=== PATIENT | female | born 1955 | race Caucasian/White ===

== ENCOUNTER 2017-07-07 14:30 | Outpatient (CLI) | payer MEDICARE, OTHER ==
--- NOTE | 2017-07-07 17:10 | RAD ---
TWO VIEWS LUMBAR SPINE: 07/07/17 HISTORY: Lumbar radiculopathy. Followup postsurgical change. COMPARISON: 05/18/17. FINDINGS: Again noted are postsurgical change related to posterior fusion with unilateral left sided pedicular screws and posterior fernanda transfixing the L3-4 level with intradiscal prosthesis in place. No hardwa re complication is appreciated. There are degenerative changes seen at the L2-3 with mild narrowing of the intervertebral disc space and osteophyte seen anteriorly. Due to underpenetrated technique, t he L5 vertebral body and lumbosacral junction on lateral projection are not well visualized. Surgica l clips overlie the abdomen with radiopaque suture material overlying the pelvis. There has been no other interval change from prior study. IMPRESSION: Stable postoperative and degenerative changes of the lumbar spine. POS: KIARRA
== END 2017-07-07 14:31 | disposition home or self-care (01) ==
LOC: TBSIIMAG 14:30
PROVIDERS: ATTEND Neurological Surgery
DX: M47.26 Other spondylosis with radiculopathy, lumbar region (principal); Z98.890 Other specified postprocedural states
CPT/HCPCS: 72100

== ENCOUNTER 2017-09-16 14:47 | Outpatient (CLI) | payer MEDICARE, OTHER ==
--- NOTE | 2017-09-16 16:05 | RAD ---
LUMBAR SPINE TWO VIEWS: 09/16/17 HISTORY: Spondylolisthesis lumbar region, status post surgery several months ago. FINDINGS: Comparison is made with exam of 07/07/17. Postop changes of left sided posterior spinal fusion are again seen with pedicle screws and interlock ing vertebral rods at L3-4 level with an intradiscal prosthesis in place. L5 is a transitional verteb ra. Metallic hardware is intact. Degenerative changes at L2-3 level are again seen. No fracture, subl uxation or bony destruction is identified. IMPRESSION: Stable exam. POS: KIARRA
== END 2017-09-16 14:48 | disposition home or self-care (01) ==
LOC: TBSIIMAG 14:47
PROVIDERS: ATTEND Neurological Surgery
DX: M43.16 Spondylolisthesis, lumbar region (principal)
CPT/HCPCS: 72100

== ENCOUNTER 2017-12-09 10:13 | Outpatient (CLI) | payer MEDICARE, OTHER ==
--- NOTE | 2017-12-09 11:59 | RAD ---
LUMBAR SPINE 2 VIEWS: Date: 12/09/17 COMPARISON: 09/16/17. HISTORY: Surgery months ago, bilateral leg pain. FINDINGS: L3 and L4 left-sided pedicle screws with a vertically oriented interlocking fernanda is present. There is an intervertebral disc device at L3-4. This hardware is stable. There are multiple postoperative clip s in the right upper quadrant and left upper quadrant, and there are numerous suture lines in the pel vis. These postoperative changes are stable as well. There is disc space narrowing at L2-3 with right lateral osteophyte formation and anterior osteophyte formation. No evidence for hardware failure, acute fracture, or dislocation. IMPRESSION: Postoperative and degenerative changes within the lumbar spine as above. POS: KIARRA
== END 2017-12-09 10:14 | disposition home or self-care (01) ==
LOC: TBSIIMAG 10:13
PROVIDERS: ATTEND Neurological Surgery
DX: M48.061 Spinal stenosis, lumbar region without neurogenic claudication (principal); M47.896 Other spondylosis, lumbar region; Z98.890 Other specified postprocedural states
CPT/HCPCS: 72100

== ENCOUNTER 2022-03-08 21:28 | Emergency (ER) | payer MEDICARE, OTHER ==
[2022-03-08] MEDS ORDERED: Morphine 4 MG/ML VIAL ONE (21:48)
[2022-03-08] MEDS ORDERED: Ondansetron PF 4 MG/2 ML Vial ONE (21:48)
[2022-03-08 22:19] LABS: #Eosinphils 0.1 thou/uL (0.0-0.7); #Lymphocytes 1.8 thou/uL (1.20-3.40); #Monocytes 0.8 thou/uL (0.11-0.59); #Neutrophils 7.6 thou/uL (1.40-6.50); %Basophils 0.4 % (0.0-1.0); %Eosinophils 1.1 % (0.0-10.0); %Lymphocytes 17.1 % (21.0-51.0); %Monocytes 8.1 % (0.0-10.0); %Neutrophils 73.3 % (42.0-75.0); Hemoglobin 13.6 g/dL (12.0-16.0); Mean Corpuscular HGB CONC 32.8 g/dL (32.0-36.0); Mean Corpuscular Hemoglobin 32.1 pg (27.0-31.0); Mean Platelet Volume 5.9 fL (7.4-10.4); Platelet Count 272 thou/uL (130-400); RBC Distribution Width 12.3 % (11.5-14.5); Red Blood Cell (RBC) Count 4.24 mill/uL (4.20-5.40); White Blood Cell (WBC) Count 10.3 thou/uL (4.8-10.8)
[2022-03-08 22:40] LABS: ALT (SGPT) 15 U/L (8-55); AST (SGOT) 24 U/L (5-34); Alkaline Phosphatase 93 U/L (40-110); Anion Gap 15 mmol/L (10-20); BUN (Urea Nitrogen) 35 mg/dL (9.8-20.1); Bilirubin, Total 0.3 mg/dL (0.2-1.2); Calc. Creatinine Clearance 0 mL/min (70-130); Carbon Dioxide 25 mmol/L (23-31); Chloride 99 mmol/L (98-107); Globulin 3.1 g/dL (2.4-3.5); Glucose 87 mg/dL (80-115); Magnesium 2.1 mg/dL (1.6-2.6); Potassium 3.7 mmol/L (3.5-5.1); Protein, Total 7.1 g/dL (5.8-8.1); Sodium 135 mmol/L (136-145)
== END 2022-03-09 01:13 | disposition home or self-care (01) ==
LOC: ERS 21:28
DX: R19.7 Diarrhea, unspecified (principal); F17.210 Nicotine dependence, cigarettes, uncomplicated; Z86.718 Personal history of other venous thrombosis and embolism; Z86.711 Personal history of pulmonary embolism; Z87.19 Personal history of other diseases of the digestive system
CPT/HCPCS: 36415; 74176; 80053; 83735; 85025; 96374; 96375; J2270; J2405

== ENCOUNTER 2022-04-23 07:29 | Outpatient (CLI) | payer MEDICARE ==
[2022-04-23] MEDS ORDERED: Iopamidol 370 76% 100 ML VIAL ONE (11:20)
== END 2022-04-23 07:30 | disposition home or self-care (01) ==
LOC: CT 07:29
PROVIDERS: ATTEND Internal Medicine Gastroenterology
DX: R93.3 Abnormal findings on diagnostic imaging of other parts of digestive tract (principal); K63.89 Other specified diseases of intestine; K57.10 Diverticulosis of small intestine without perforation or abscess without bleeding; Z90.49 Acquired absence of other specified parts of digestive tract; Z90.710 Acquired absence of both cervix and uterus; Z98.890 Other specified postprocedural states
CPT/HCPCS: 74178; 82565; Q9967

== ENCOUNTER 2023-04-23 09:15 | Outpatient (CLI) | payer MEDICARE ==
[2023-04-23] MEDS ORDERED: Iopamidol-370 76% 500 ML MDV (1 ML CHARGE) ONE (10:12)
== END 2023-04-23 09:16 | disposition home or self-care (01) ==
LOC: BICCT 09:15
PROVIDERS: ATTEND Physician Assistant Medical
DX: K52.9 Noninfective gastroenteritis and colitis, unspecified (principal)
CPT/HCPCS: 74177; 87177; 87507; Q9967